=== PATIENT | female | born 1980 | race Caucasian/White ===

== ENCOUNTER 2018-11-10 13:34 | Emergency (ER) | payer SELFPAY ==
[~2018-11-10] VITALS: Ht 170.2 cm; Wt 79.5 kg
[~2018-11-10 13:34] MED LIST: CELEXA10 MG PO; DOXYCYCLINE 10100 MG PO; FLEXERIL 1010 MG/TAB PO; MOBIC 7.5MG7.5 MG PO; MOTRIN 600600 MG/TAB PO; NAPROSYN500 MG PO; NEURONTIN800 MG/TAB PO; NORCO 325 MG-51 TAB PO; NORCO 325 MG-7.1 TAB PO; PERCOCET 325 MG1 TA2 PO; PREDNISONE10 MG PO; REGLAN 10MG10 MG/TAB PO; REQUIP 1MG T1 MG/TAB PO; REQUIP2 MG PO; ZOFRAN ODT4 MG PO
[2018-11-10 13:39] VITALS: BP 122/74; TEMP 99
[2018-11-10] MEDS ORDERED: ROBAXIN 50500 MG/TAB PO (14:51)
[2018-11-10] MEDS ORDERED: LIDODERM 5% PATC1 EA TP (14:51)
[2018-11-10 14:59] VITALS: PULSE 77
== END 2018-11-10 15:00 | disposition home or self-care (01) ==
LOC: COL.ER 13:34
DX: S39.012A Strain of muscle, fascia and tendon of lower back, initial encounter (principal); Z98.51 Tubal ligation status; X50.1XXA Overexertion from prolonged static or awkward postures, initial encounter
CPT/HCPCS: J1885